=== PATIENT | female | born 1950 | race African-American/Black ===

== ENCOUNTER 2016-07-29 21:14 | Emergency (ER) | payer OTHER ==
[2016-07-29 21:24] VITALS: BP 140/87; PULSE 117; TEMP 97.8; BMI 30.2
--- NOTE | 2016-07-29 21:31 | PDOC ---
History of Present Illness - General History Source: Patient Exam Limitations: No Limitations - History of Present Illness Initial Comments: 07/29/16 21:41 The patient is a 66 year old female with significant past medical history of hypertension, MS, and multiple allergies who presents to the ED with allergic reaction few hours prior to arrival. Patient reports she ate eggs around 4pm and at that time she believed she developed an allergic reaction. Patient states she felt her throat closing up and decided to give herself an epipen with improvement. Subsequently, she felt tightness of the throat, which she describes as being dry. Patient denies chest pain, SOB, tongue swelling, mouth swelling, and hives. Patient has a history of angioedema secondary to taking monopril The patient denies fever, chills, and cough. The patient denies abdominal pain, nausea, vomiting, and diarrhea. Allergies: egg, fosinopril sodium, aspirin, sulfa Social History: No alcohol, tobacco, or drug use reported. Past Surgical History: None reported <Sugey Washburn - Last Filed: 07/29/16 21:41> - General History Source: Patient <William Nicole - Last Filed: 07/29/16 22:55> - General Chief Complaint: Allergic Reaction Stated Complaint: ALLERGIC RX Time Seen by Provider: 07/29/16 21:30 Past History <Sugey Washburn - Last Filed: 07/29/16 21:41> - Past Medical History HTN: Yes Psychiatric Problems: Yes Other medical history: MS - Immunization History Td Vaccination: (unknown) Immunization Up to Date: Yes (unknown) - Psycho/Social/Smoking Cessation Hx Anxiety: Yes Suicidal Ideation: No Smoking Status: No Smoking History: Current every day smoker Years of Tobacco Use: 0 Have you smoked in the past 12 months: Yes Number of Cigarettes Smoked Daily: 10 If you are a former smoker, when did you quit?: per the daughter the patient quit smoking one month ago. Cigars Per Day: 0 Information on smoking cessation initiated: No Hx Alcohol Use: No Drug/Substance Use Hx: No Substance Use Type: None Hx Substance Use Treatment: No <William Nicole - Last Filed: 07/29/16 22:55> - Past Medical History Allergies/Adverse Reactions: Allergies Allergy/AdvReac Type Severity Reaction Status Date / Time egg Allergy Severe Difficulty Verified 07/29/16 21:22 Breathing fosinopril sodium Allergy Severe ACUTE Verified 07/29/16 21:22 [From Monopril] ANGIOEDEMA. aspirin Allergy Mild ABDOMINAL Verified 07/29/16 21:22 PAIN Sulfa (Sulfonamide Allergy "MUCOUS Verified 07/29/16 21:22 Antibiotics) [facility]". Home Medications: Ambulatory Orders Amlodipine Besylate [Norvasc -] 5 mg PO DAILY 02/14/15 Interferon Alfacon-1 [Infergen] 9 mcg SQ WEEKLY 02/14/15 Multivitamin [Poly-Vitamin] 1 each PO DAILY 02/14/15 Nortriptyline HCl [Pamelor -] 25 mg PO DAILY 02/14/15 Diphenhydramine HCl [Benadryl Capsules -] 25 mg PO TID #30 capsule 07/29/16 Epinephrine (Epi-Pen 0.3MG) [Epipen 0.3MG -] 0.3 mg IM ASDIR #2 pens 07/29/16 Famotidine [Pepcid] 40 mg PO DAILY #30 tablet 07/29/16 Methylprednisolone [Medrol Dose Gustavo] 4 mg PO ASDIR #21 tablet 07/29/16 Review of Systems - Review of Systems Able to Perform ROS?: Yes Comments:: 07/29/16 21:41 CONSTITUTIONAL: Absent: fever, no chills, no fatigue EYES: Absent: visual changes ENT: +throat swelling/tightness Absent: ear pain, no sore throat CARDIOVASCULAR: Absent: chest pain, no palpitations RESPIRATORY: Absent: cough, no SOB GI: Absent: abdominal pain, no nausea, no vomiting, no constipation, no diarrhea GENITOURINARY: Absent: dysuria, no frequency, no hematuria MUSKULOSKELETAL: Absent: back pain, no arthralgia, no myalgia SKIN: Absent: rash NEURO: Absent: headache <Bharrat,Sugey - Last Filed: 07/29/16 21:41> *Physical Exam - Vital Signs Last Vital Signs Temp Pulse Resp BP Pulse Ox 97.8 F 117 H 16 140/87 98 07/29/16 21:22 07/29/16 21:22 07/29/16 21:22 07/29/16 21:22 07/29/16 21:22 - Physical Exam Comments: 07/29/16 21:42 GENERAL: Well-appearing, well-nourished. No apparent distress. HEENT: Normocephalic, atraumatic. PERRL, EOM intact. CARDIOVASCULAR: Normal S1, S2. Regular rate and rhythm. PULMONARY: No respiratory distress. Clear to auscultation bilaterally. No accessory muscle use. No tripoding. No hot potato voice. ABDOMEN: Soft, non-distended, non-tender. EXTREMITIES: Normal ROM in all four extremities. No gross deformities. SKIN: Warm, dry. No rash NEUROLOGICAL: No focal neurological deficits. <Sugey Washburn - Last Filed: 07/29/16 21:41> - Vital Signs Last Vital Signs Temp Pulse Resp BP Pulse Ox 97.8 F 117 H 16 140/87 98 07/29/16 21:22 07/29/16 21:22 07/29/16 21:22 07/29/16 21:22 07/29/16 21:22 <William Nicole - Last Filed: 07/29/16 22:55> ED Treatment Course - LABORATORY CBC & Chemistry Diagram: 07/29/16 21:50 07/29/16 21:50 <William Nicole - Last Filed: 07/29/16 22:55> Medical Decision Making - Medical Decision Making 07/29/16 22:53 Dr. Nicole: The scribe's documentation has been prepared under my direction and personally reviewed by me in its entirery. I confirm that the note above accurately reflects all work, treatment, procedures, and medical decision making performed by me. <William Nicole - Last Filed: 07/29/16 22:55> *DC/Admit/Observation/Transfer - Attestations Scribe Attestion: 07/29/16 21:42 Documentation prepared by Sugey Washburn, acting as associate medical director for William Nicole MD <Sugey Washburn - Last Filed: 07/29/16 21:41> - Discharge Dispostion Admit: No <William Nicole - Last Filed: 07/29/16 22:55> Diagnosis at time of Disposition: Allergic reaction Qualifiers: Encounter type: initial encounter Qualified Code(s): T78.40XA - Allergy, unspecified, initial encounter - Discharge Dispostion Disposition: HOME Condition at time of disposition: Improved - Patient Instructions Printed Discharge Instructions: DI for General Allergic Reactions
[2016-07-29] MEDS ORDERED: methylPREDNISolone NA SUCC 125 MG/2 ML VIAL IVPB ONE (21:32)
[2016-07-29] MEDS ORDERED: FAMOTIDINE 20 MG/50 ML IVPB 20 MG in PREMIX 50 IVPB ONE (21:32)
[2016-07-29] MEDS ORDERED: methylPREDNISolone NA SUCC 125 MG/2 ML VIAL ONE (21:33)
[2016-07-29] MEDS ORDERED: SODIUM CHLORIDE 1,000 ML IV STA (21:33)
[2016-07-29] MEDS ORDERED: FAMOTIDINE 20 MG/50 ML IVPB 50 ML IVPB ONE (21:33)
[2016-07-29 21:56] LABS: BASOPHIL 1.3 % (0-2.0); MCH 22.2 pg (25.7-33.7); MEAN CELL VOLUME 69.3 fl (80-96); MEAN PLT VOLUME 8.8 fl (7.5-11.1); NEUTROPHILS 51.8 % (42.8-82.8); RDW 14.7 % (11.6-15.6); WHITE BLOOD COUNT 7.4 K/mm3 (4.0-10.0)
[2016-07-29 22:32] LABS: HYPOCHROMIA 1+; MICROCYTOSIS 1+; PLATELET COUNT 283 K/MM3 (134-434); PLATELET ESTIMATE ADEQUATE (NORMAL)
[2016-07-29 22:45] LABS: ALBUMIN 3.9 g/dl (3.4-5.0); CALCIUM 9.6 mg/dL (8.5-10.1); CREATININE 1.1 mg/dL (0.55-1.02)
[2016-07-29 22:47] LABS: BILIRUBIN,TOTAL 0.3 mg/dL (0.2-1.0)
== END 2016-07-29 23:02 | disposition home or self-care (01) ==
LOC: JER 21:14
PROC: 3E033GC Introduction of Other Therapeutic Substance into Peripheral Vein, Percutaneous Approach (ICD-10-PCS; principal; 2016-07-29)
PROC: 3E033NZ Introduction of Analgesics, Hypnotics, Sedatives into Peripheral Vein, Percutaneous Approach (ICD-10-PCS; 2016-07-29)
PROC: 3E0337Z Introduction of Electrolytic and Water Balance Substance into Peripheral Vein, Percutaneous Approach (ICD-10-PCS; 2016-07-29)
DX: T78.40XA Allergy, unspecified, initial encounter (principal); X58.XXXA Exposure to other specified factors, initial encounter; I10 Essential (primary) hypertension; G35 Multiple sclerosis; F17.210 Nicotine dependence, cigarettes, uncomplicated
CPT/HCPCS: 36415; 80053; 85025; 96365; 96375; 99282-25

== ENCOUNTER 2016-08-06 11:49 | Emergency (ER) | payer OTHER ==
--- NOTE | 2016-08-06 12:06 | PDOC ---
History of Present Illness - General Stated Complaint: PALPITATION Time Seen by Provider: 08/06/16 12:05 Past History - Past Medical History Allergies/Adverse Reactions: Allergies Allergy/AdvReac Type Severity Reaction Status Date / Time egg Allergy Severe Difficulty Verified 07/29/16 21:22 Breathing fosinopril sodium Allergy Severe ACUTE Verified 07/29/16 21:22 [From Monopril] ANGIOEDEMA. aspirin Allergy Mild ABDOMINAL Verified 07/29/16 21:22 PAIN Sulfa (Sulfonamide Allergy "MUCOUS Verified 07/29/16 21:22 Antibiotics) [facility]". Home Medications: Ambulatory Orders Amlodipine Besylate [Norvasc -] 5 mg PO DAILY 02/14/15 Interferon Alfacon-1 [Infergen] 9 mcg SQ WEEKLY 02/14/15 Multivitamin [Poly-Vitamin] 1 each PO DAILY 02/14/15 Nortriptyline HCl [Pamelor -] 25 mg PO DAILY 02/14/15 Diphenhydramine HCl [Benadryl Capsules -] 25 mg PO TID #30 capsule 07/29/16 Epinephrine (Epi-Pen 0.3MG) [Epipen 0.3MG -] 0.3 mg IM ASDIR #2 pens 07/29/16 Famotidine [Pepcid] 40 mg PO DAILY #30 tablet 07/29/16 Methylprednisolone [Medrol Dose Gustavo] 4 mg PO ASDIR #21 tablet 07/29/16 HTN: Yes Psychiatric Problems: Yes - Immunization History Td Vaccination: (unknown) Immunization Up to Date: Yes (unknown) - Psycho/Social/Smoking Cessation Hx Anxiety: Yes Suicidal Ideation: No Smoking Status: No Smoking History: Current every day smoker Years of Tobacco Use: 0 Have you smoked in the past 12 months: Yes Number of Cigarettes Smoked Daily: 10 If you are a former smoker, when did you quit?: per the daughter the patient quit smoking one month ago. Cigars Per Day: 0 Hx Alcohol Use: No Drug/Substance Use Hx: No Substance Use Type: None Hx Substance Use Treatment: No *Physical Exam - Vital Signs Last Vital Signs Temp Pulse Resp BP Pulse Ox 98.7 F 80 16 148/88 98 08/06/16 12:24 08/06/16 14:55 08/06/16 14:55 08/06/16 14:55 08/06/16 14:55 ED Treatment Course - LABORATORY CBC & Chemistry Diagram: 08/06/16 12:30 08/06/16 12:30 - ADDITIONAL ORDERS Additional order review: 08/06/16 12:30 RBC 6.30 H MCV 69.3 L MCHC 32.4 RDW 14.9 MPV 8.1 Neutrophils % 65.8 D Lymphocytes % 25.5 D Monocytes % 7.5 Eosinophils % 0.6 Basophils % 0.6 *DC/Admit/Observation/Transfer Diagnosis at time of Disposition: Palpitations - Discharge Dispostion Disposition: AGAINST MEDICAL ADVICE Condition at time of disposition: Good Admit: No - Referrals Referrals: Rebecca Sullivan MD [Primary Care Provider] -
--- NOTE | 2016-08-06 12:06 | PDOC ---
History of Present Illness - General Stated Complaint: PALPITATION Time Seen by Provider: 08/06/16 12:05 History Source: Patient Exam Limitations: No Limitations - History of Present Illness Initial Comments: 08/06/16 12:29 Patient is a 66 year old female with significant PMH of Hypertension & Multiple Sclerosis who presents to ED with palpitation since last night. States she developed palpitations and a feeling of "heavy pulses" after a moderately strenuous day. Palpitations were followed by a diffuse tension headache and bounding pulses in her carotids, namely her left carotid. She woke up this morning with continued pain at her left neck which was now accompanied by left arm numbness. She reports constipation. Denies fever, chills, tremors, sweating , heat/cold intolerance, vision changes. States she was told she has a cystocoele and is to followup with urologist later this week. She finished a Medrol dose pack 2 days ago for seasonal allergies. Past History - Travel Traveled outside of the country in the last 30 days: No Close contact w/someone who was outside of country & ill: No - Past Medical History Allergies/Adverse Reactions: Allergies Allergy/AdvReac Type Severity Reaction Status Date / Time egg Allergy Severe Difficulty Verified 07/29/16 21:22 Breathing fosinopril sodium Allergy Severe ACUTE Verified 07/29/16 21:22 [From Monopril] ANGIOEDEMA. aspirin Allergy Mild ABDOMINAL Verified 07/29/16 21:22 PAIN Sulfa (Sulfonamide Allergy "MUCOUS Verified 07/29/16 21:22 Antibiotics) [facility]". Home Medications: Ambulatory Orders Amlodipine Besylate [Norvasc -] 5 mg PO DAILY 02/14/15 Interferon Alfacon-1 [Infergen] 9 mcg SQ WEEKLY 02/14/15 Multivitamin [Poly-Vitamin] 1 each PO DAILY 02/14/15 Nortriptyline HCl [Pamelor -] 25 mg PO DAILY 02/14/15 Diphenhydramine HCl [Benadryl Capsules -] 25 mg PO TID #30 capsule 07/29/16 Epinephrine (Epi-Pen 0.3MG) [Epipen 0.3MG -] 0.3 mg IM ASDIR #2 pens 07/29/16 Famotidine [Pepcid] 40 mg PO DAILY #30 tablet 07/29/16 Methylprednisolone [Medrol Dose Gustavo] 4 mg PO ASDIR #21 tablet 07/29/16 HTN: Yes Other medical history: Multiple Sclerosis - Surgical History Other Surgical History: 08/06/16 12:33 Tonsilectomy, Lumpectomy - Family Disease History Family Disease History: Heart Disease: Brother ([place]) - Immunization History Td Vaccination: (unknown) Immunization Up to Date: Yes (unknown) - Psycho/Social/Smoking Cessation Hx Anxiety: Yes Suicidal Ideation: No Smoking Status: No Smoking History: Current every day smoker Years of Tobacco Use: 40 Have you smoked in the past 12 months: Yes Number of Cigarettes Smoked Daily: 10 If you are a former smoker, when did you quit?: per the daughter the patient quit smoking one month ago. Cigars Per Day: 0 Hx Alcohol Use: No Drug/Substance Use Hx: No Substance Use Type: None Hx Substance Use Treatment: No Review of Systems - Review of Systems Able to Perform ROS?: Yes Is the patient limited Greenlandic proficient: No Cardiac (ROS): Yes: Lightheadedness, Palpitations, Other (neck tightness) ABD/GI: Yes: Constipated Neurological: Yes: Headache All Other Systems: Reviewed and Negative *Physical Exam - Physical Exam General Appearance: Yes: Nourished, Appropriately Dressed HEENT: positive: EOMI, VADIM, Normal ENT Inspection Neck: positive: Trachea midline, Supple (Mild thyromegaly (L>R)) Respiratory/Chest: positive: Lungs Clear, Normal Breath Sounds Cardiovascular: positive: Regular Rhythm, S1, S2, Tachycardia, Other ((-) CAROTID BRUIT) Gastrointestinal/Abdominal: positive: Normal Bowel Sounds, Flat, Soft Musculoskeletal: positive: Normal Inspection Extremity: positive: Normal Inspection, Normal Range of Motion Integumentary: positive: Normal Color, Dry, Warm Neurologic: positive: bull rider II-XII NML intact, Fully Oriented, Alert, Normal Mood/ Affect, Motor Strength 5/5 Heart Score/ECG Review - ECG Impressions Normal ECG: Yes Comment:: 08/06/16 12:36 As per ED read, EKG shows normal Sinus rhythm ED Treatment Course - LABORATORY CBC & Chemistry Diagram: 08/06/16 12:30 08/06/16 12:30 Medical Decision Making - Medical Decision Making 08/06/16 12:36 Carotid Dopplers & Head CT ordered. Also ordered workup including CBC, CMP, BNP , TSH, Cardiac profile to rule out ACS. CXR also requested. 08/06/16 14:[address] & Carotid doppler (-) for any signs of anuerysm, dissection, stenosis or acute pathology. Troponin (-) x1. Will repeat cardiac profile at 16:30, if (- ) then will discharge with instructions to f/u with PCP. 08/06/16 17:26 Patient had another episode of left upper chest & neck pain while in ED. Will need to keep overnight for cardiac monitoring and further troponin levels. Left message with Dr Witt who is admitting for (PCP). 08/06/16 17:[address] Witt. Agrees to place patient in telemetry for observation overnight. Patient stable at present. *DC/Admit/Observation/Transfer Diagnosis at time of Disposition: Palpitations - Discharge Dispostion Admit: Yes
[2016-08-06 12:28] VITALS: TEMP 98.7; BMI 30.2
[2016-08-06 12:50] LABS: BASOPHIL 0.6 % (0-2.0); EOSINOPHIL 0.6 % (0-4.5); MCH 22.4 pg (25.7-33.7); MCHC 32.4 g/dl (32.0-36.0); MEAN CELL VOLUME 69.3 fl (80-96); MEAN PLT VOLUME 8.1 fl (7.5-11.1); NEUTROPHILS 65.8 % (42.8-82.8); PLATELET COUNT 265 K/MM3 (134-434); RDW 14.9 % (11.6-15.6); WHITE BLOOD COUNT 11.3 K/mm3 (4.0-10.0)
[2016-08-06 13:13] LABS: ALBUMIN 3.5 g/dl (3.4-5.0); BILIRUBIN,TOTAL 0.3 mg/dL (0.2-1.0); CALCIUM 8.3 mg/dL (8.5-10.1); TOT PROT 6.8 g/dl (6.4-8.2)
[2016-08-06 13:21] LABS: THYROID STIMULATING HORMONE 2.66 uIU/ml (0.358-3.74); TROPONIN I 0.03 ng/ml (0.00-0.05)
[2016-08-06 13:48] LABS: HYPOCHROMIA 1+; MICROCYTOSIS 1+; PLATELET ESTIMATE ADEQUATE (NORMAL)
[2016-08-06 13:49] LABS: TARGET CELLS FEW
--- NOTE | 2016-08-06 14:13 | EKG ---
Test Reason : Blood Pressure : / mmHG Vent. Rate : 084 BPM Atrial Rate : 084 BPM P-R Int : 158 ms QRS Dur : 084 ms QT Int : 384 ms P-R-T Axes : 057 047 057 degrees QTc Int : 453 ms NORMAL SINUS RHYTHM POSSIBLE LEFT ATRIAL ENLARGEMENT BORDERLINE ECG WHEN COMPARED WITH ECG OF 31-MAY-2015 03:10, CRITERIA FOR SEPTAL INFARCT ARE NO LONGER PRESENT Confirmed by RAMANDEEP UBCKNER, THIEN ([id number]) on 08/06/2016 2:12:51 PM Referred By: Confirmed By:THIEN SABILLON MD
[2016-08-06 14:56] VITALS: BP 148/88; PULSE 80
[2016-08-06 18:19] LABS: TROPONIN I 0.03 ng/ml (0.00-0.05)
--- NOTE | 2016-08-06 23:10 | HP ---
Admitting History and Physical - Primary Care Physician PCP: Chun Witt - Admission Chief Complaint: Palpitations History of Present Illness: Pt. went to bed last night but couldn't fall a sleep secondary to palpitations; pt. had left arm numbness associated with palpitaions. This AM pt. had a new episode of palpitations associated with lightheadedness, left arm numbness; pt came to ER; pt was placed under observation status on Telemetry for monitoring. History Source: Patient - Past Medical History SKEIN WASHER: Yes: Multiple Sclerosis Cardiovascular: Yes: HTN Endocrine: Yes: Other (Elevated Fasting Glucose) - Smoking History Smoking history: Current every day smoker Have you smoked in the past 12 months: Yes Aproximately how many cigarettes per day: 10 If you are a former smoker, when did you quit?: per the daughter the patient quit smoking one month ago. - Alcohol/Substance Use Hx Alcohol Use: No Home Medications - Allergies Allergies/Adverse Reactions: Allergies Allergy/AdvReac Type Severity Reaction Status Date / Time egg Allergy Severe Difficulty Verified 07/29/16 21:22 Breathing fosinopril sodium Allergy Severe ACUTE Verified 07/29/16 21:22 [From Monopril] ANGIOEDEMA. aspirin Allergy Mild ABDOMINAL Verified 07/29/16 21:22 PAIN Sulfa (Sulfonamide Allergy "MUCOUS Verified 07/29/16 21:22 Antibiotics) [facility]". - Home Medications Home Medications: Ambulatory Orders Amlodipine Besylate [Norvasc -] 5 mg PO DAILY 02/14/15 Interferon Alfacon-1 [Infergen] 9 mcg SQ WEEKLY 02/14/15 Multivitamin [Poly-Vitamin] 1 each PO DAILY 02/14/15 Nortriptyline HCl [Pamelor -] 25 mg PO DAILY 02/14/15 Diphenhydramine HCl [Benadryl Capsules -] 25 mg PO TID #30 capsule 07/29/16 Epinephrine (Epi-Pen 0.3MG) [Epipen 0.3MG -] 0.3 mg IM ASDIR #2 pens 07/29/16 Famotidine [Pepcid] 40 mg PO DAILY #30 tablet 07/29/16 Methylprednisolone [Medrol Dose Gustavo] 4 mg PO ASDIR #21 tablet 07/29/16 Review of Systems - Review of Systems Constitutional: denies: Chills, Fever Eyes: denies: Blurred Vision, Double Vision HENT: denies: Ear Discharge, Ear Pain, Nasal Congestion, Throat Pain Neck: denies: Pain on Movement, Stiffness Cardiovascular: denies: Chest Pain (now), Edema, Palpitations (now), Shortness of Breath Respiratory: denies: Cough, Hemoptysis, SOB on Exertion, Wheezing Gastrointestinal: denies: Abdominal Pain, Nausea, Vomiting Genitourinary: denies: Burning, Dysuria, Frequency Neurological: denies: Change in LOC, Change in Speech, Confusion, Numbness (now) Endocrine: denies: Excessive Sweating, Intolerance to Cold Hematology/Lymphatic: denies: Easily Bruised, Excessive Bleeding Physical Examination Vital Signs: Vital Signs Temperature 98.7 F 08/06/16 12:24 Pulse Rate 80 08/06/16 14:55 Respiratory Rate 16 08/06/16 14:55 Blood Pressure 148/88 08/06/16 14:55 O2 Sat by Pulse Oximetry (%) 98 08/06/16 14:55 Constitutional: Yes: No Distress, Calm Eyes: Yes: Conjunctiva Clear, EOM Intact, PERRL HENT: Yes: Normocephalic. No: Epistaxis, Nasal Congestion, Pharyngeal Erythema Neck: Yes: Trachea Midline, Thyromegaly. No: Lymphadenopathy, Tenderness Cardiovascular: Yes: Regular Rate and Rhythm, S1, S2 Respiratory: Yes: Regular, CTA Bilaterally. No: Rales Gastrointestinal: Yes: Normal Bowel Sounds, Soft. No: Palpable Mass, Tenderness ...Rectal Exam: Yes: Deferred Renal/: No: CVA Tenderness - Left, CVA Tenderness - Right Breast(s): Yes: Other (Deferred) Musculoskeletal: No: Joint Stiffness, Joint Swelling Extremities: No: Cold, Cool Edema: No Neurological: Yes: Cran Nerves II-XII Intact. No: Alert, Oriented, Confusion Psychiatric: Yes: Alert, Oriented. No: Agitated Labs: reviewed Imaging - Results Chest X-ray: Report Reviewed Cat Scan: Report Reviewed Ultrasound: Report Reviewed Problem List - Problems (1) Palpitations Assessment/Plan: Serial CE Monitor on telemetry Cardio Consult Code(s): R00.2 - PALPITATIONS (2) Goiter diffuse Assessment/Plan: normal TSH Code(s): E04.9 - NONTOXIC GOITER, UNSPECIFIED (3) Multiple sclerosis Assessment/Plan: At baseline Code(s): G35 - MULTIPLE SCLEROSIS Assessment/Plan AM labs
[2016-08-06] MEDS ORDERED: NORTRIPTYLINE HCL 25 MG CAPSULE PO SCH (23:45)
[2016-08-07] MEDS ORDERED: amLODIPine BESYLATE 5 MG TABLET (FP) PO SCH (10:00)
== END 2016-08-07 02:28 | disposition left against medical advice (07) ==
LOC: JER 11:49 → JERBED 22:26 → UNDOADMOB 22:26 → JER 08-07 02:28
DX: R00.2 Palpitations (principal); I10 Essential (primary) hypertension; G35 Multiple sclerosis; F17.210 Nicotine dependence, cigarettes, uncomplicated
CPT/HCPCS: 36415; 70450-TC; 71010-TC; 80053; 82550; 83880; 84443; 84484; 85025; 93005; 93010; 93880-TC; 99285-25

== ENCOUNTER 2017-02-18 20:23 | Emergency (ER) | payer OTHER ==
[2017-02-18 20:36] VITALS: BP 142/89; PULSE 82; TEMP 97.7; BMI 30.2
[2017-02-18] MEDS ORDERED: predniSONE 20 MG TABLET (UD) PO ONE (21:03)
[2017-02-18] MEDS ORDERED: predniSONE 20 MG TABLET (UD) ONE (21:05)
--- NOTE | 2017-02-18 21:09 | PDOC ---
History of Present Illness - General Chief Complaint: Allergic Reaction Stated Complaint: ALLERGIC REACTION Time Seen by Provider: 02/18/17 20:39 History Source: Patient Exam Limitations: No Limitations - History of Present Illness Initial Comments: 02/18/17 21:04 66-year-old female with multiple food allergies presents to the ED with complaints of generalized itching and feeling that her throat was closing with hoarse voice after having Ramen soup that may or may have not contained eggs which she is allergic to. Patient currently has no complaints of dizziness, difficulty breathing, or feeling that her throat is closing. Patient states took Benadryl and gave herself an EpiPen that she realizes after being administered. Timing/Duration: reports: just prior to arrival Severity: reports: moderate Possible Cause: Yes: occasional episodes Associated Symptoms: reports: sore throat, other. denies: shortness of breath, wheezing Past History - Travel Traveled outside of the country in the last 30 days: No Close contact w/someone who was outside of country & ill: No - Past Medical History Allergies/Adverse Reactions: Allergies Allergy/AdvReac Type Severity Reaction Status Date / Time egg Allergy Severe Difficulty Verified 02/18/17 20:32 Breathing fosinopril sodium Allergy Severe ACUTE Verified 02/18/17 20:32 [From Monopril] ANGIOEDEMA. aspirin Allergy Mild ABDOMINAL Verified 02/18/17 20:32 PAIN Sulfa (Sulfonamide Allergy "MUCOUS Verified 02/18/17 20:32 Antibiotics) [facility]". Home Medications: Ambulatory Orders Amlodipine Besylate [Norvasc -] 5 mg PO DAILY 02/14/15 Interferon Alfacon-1 [Infergen] 9 mcg SQ WEEKLY 02/14/15 Multivitamin [Poly-Vitamin] 1 each PO DAILY 02/14/15 Nortriptyline HCl [Pamelor -] 25 mg PO DAILY 02/14/15 Diphenhydramine HCl [Benadryl Capsules -] 25 mg PO TID #30 capsule 07/29/16 Epinephrine (Epi-Pen 0.3MG) [Epipen 0.3MG -] 0.3 mg IM ASDIR #2 pens 07/29/16 Famotidine [Pepcid] 40 mg PO DAILY #30 tablet 07/29/16 Methylprednisolone [Medrol Dose Gustavo] 4 mg PO ASDIR #21 tablet 07/29/16 GI Disorders: Yes (CYSTOCELE) HTN: Yes Psychiatric Problems: Yes Other medical history: Multiple sclerosis - Family Disease History Family Disease History: Heart Disease: Brother ([place]) - Immunization History Td Vaccination: (unknown) Immunization Up to Date: Yes (unknown) - Psycho/Social/Smoking Cessation Hx Anxiety: Yes Suicidal Ideation: No Smoking Status: No Smoking History: Current every day smoker Years of Tobacco Use: 0 Have you smoked in the past 12 months: Yes Number of Cigarettes Smoked Daily: 10 If you are a former smoker, when did you quit?: per the daughter the patient quit smoking one month ago. Cigars Per Day: 0 Information on smoking cessation initiated: No Hx Alcohol Use: No Drug/Substance Use Hx: No Substance Use Type: None Hx Substance Use Treatment: No Patient Lives Alone: No Review of Systems - Review of Systems Able to Perform ROS?: No Is the patient limited Turkish proficient: No Constitutional: No: Symptoms Reported HEENTM: Yes: Throat Swelling Respiratory: No: Symptoms reported Cardiac (ROS): No: Symptoms Reported ABD/GI: No: Symptoms Reported Musculoskeletal: No: Symptoms Reported Integumentary: Yes: Pruritus, Rash Endocrine: No: Symptoms Reported *Physical Exam - Vital Signs Last Vital Signs Temp Pulse Resp BP Pulse Ox 97.7 F 82 20 142/89 98 02/18/17 20:33 02/18/17 20:33 02/18/17 20:33 02/18/17 20:33 02/18/17 20:33 - Physical Exam General Appearance: Yes: Nourished, Appropriately Dressed. No: Apparent Distress HEENT: positive: EOMI, VADIM, Normal Voice, TMs Normal, Pharynx Normal (uvula midline. No erythema. No edema) Respiratory/Chest: positive: Lungs Clear, Normal Breath Sounds. negative: Respiratory Distress, Accessory Muscle Use, Stridor, Wheezing Cardiovascular: positive: Regular Rhythm, Regular Rate. negative: Murmur Integumentary: positive: Hives (mild to upper anterior neck.) Medical Decision Making - Medical Decision Making 02/18/17 21:07 Patient here for evaluation of possible allergic reaction to ingestion of aches. Patient gave herself 50 modems of Benadryl prior to arrival and an EpiPen due to feeling that her throat was closing. Patient here on exam had no acute findings and will be given prednisone 60 with three-day supply of 40 mg to avoid rebound reaction. Patient also will be given a refill for her EpiPen and states has Benadryl at home. *DC/Admit/Observation/Transfer Diagnosis at time of Disposition: Allergic reaction Qualifiers: Encounter type: initial encounter Qualified Code(s): T78.40XA - Allergy, unspecified, initial encounter - Discharge Dispostion Disposition: HOME Condition at time of disposition: Improved - Referrals Referrals: Rebecca Sullivan MD [Primary Care Provider] - - Patient Instructions Printed Discharge Instructions: DI for General Allergic Reactions Additional Instructions: Please carry EpiPen with you at all times. Please take Benadryl as needed for itching and rash. Please take prednisone starting tomorrow for the next 3 days. If symptoms return despite above recommendations please return to the ED immediately. - Post Discharge Activity
== END 2017-02-18 21:15 | disposition home or self-care (01) ==
LOC: JERFT 20:23
DX: T78.40XA Allergy, unspecified, initial encounter (principal); I10 Essential (primary) hypertension; G35 Multiple sclerosis; F99 Mental disorder, not otherwise specified; F17.210 Nicotine dependence, cigarettes, uncomplicated
CPT/HCPCS: 99281-25

== ENCOUNTER 2020-07-07 23:26 | Emergency (ER) | payer OTHER ==
[2020-07-07 23:46] VITALS: BP 177/96; PULSE 83; TEMP 98.6; BMI 30.2
[2020-07-08] MEDS ORDERED: FAMOTIDINE 20 MG TABLET PO ONE (00:03)
[2020-07-08] MEDS ORDERED: predniSONE 20 MG TABLET (UD) PO ONE (00:03)
[2020-07-08] MEDS ORDERED: FAMOTIDINE 20 MG TABLET ONE (00:09)
[2020-07-08] MEDS ORDERED: predniSONE 20 MG TABLET (UD) ONE (00:09)
== END 2020-07-08 01:01 | disposition home or self-care (01) ==
LOC: FER 23:26
DX: T78.40XA Allergy, unspecified, initial encounter (principal)
CPT/HCPCS: 99284-25

== ENCOUNTER 2020-09-08 07:02 | Inpatient (IN) | payer OTHER ==
[2020-09-08 07:26] VITALS: BMI 29.2
[2020-09-08 08:31] LABS: BASO % 0.9 % (0-2.0); EOS % 1.1 % (0-4.5); HEMATOCRIT 43.2 % (32.4-45.2); LYMPH % 27.8 % (8-40); MCH 22.9 pg (25.7-33.7); MCHC 32.5 g/dl (32.0-36.0); MEAN CELL VOLUME 70.6 fl (80-96); MEAN PLT VOLUME 9.7 fl (7.5-11.1); MONO % 7.4 % (3.8-10.2); NEUT % 62.8 % (42.8-82.8); PLATELET COUNT 216 K/MM3 (134-434); RBC 6.11 M/mm3 (3.60-5.2); RDW 14.4 % (11.6-15.6); WHITE BLOOD COUNT 7.6 K/mm3 (4.0-10.0)
[2020-09-08] MEDS ORDERED: SODIUM CHLORIDE 1,000 ML IV STA (08:48)
[2020-09-08 09:19] LABS: ALBUMIN 3.5 g/dl (3.4-5.0); ALK PHOS 138 U/L (45-117); ANION GAP 7 MMOL/L (8-16); BILIRUBIN,TOTAL 0.4 mg/dL (0.2-1); BLOOD UREA NITROGEN 10.4 mg/dL (7-18); CALCIUM 8.8 mg/dL (8.5-10.1); CHLORIDE 110 mmol/L (98-107); CO2 21 mmol/L (21-32); CREATININE 0.8 mg/dL (0.55-1.3); GLUCOSE,RANDOM 102 mg/dL (74-106); MAGNESIUM 1.9 mg/dL (1.8-2.4); SGOT/AST 53 U/L (15-37); SGPT/ALT 41 U/L (13-61); SODIUM 138 mmol/L (136-145); TOT PROT 7.5 g/dl (6.4-8.2)
[2020-09-08 09:39] LABS: POTASSIUM 6.1 mmol/L (3.5-5.1)
[2020-09-08 09:39] LABS: EPI CELLS 4 /uL (0-25.1); HYALINE CASTS 0 /uL (0-3.1); PH,URINE 6.5 (5.0-8.0); URINE APPEARANCE CLEAR; URINE BACTERIA 86 /uL (0-1359); URINE BILIRUBIN NEGATIVE (NEGATIVE); URINE COLOR YELLOW; URINE GLUCOSE (UA) NEGATIVE (NEGATIVE); URINE KETONE NEGATIVE (NEGATIVE); URINE LEUK ESTERASE TRACE (NEGATIVE); URINE NITRITE NEGATIVE (NEGATIVE); URINE PROTEIN NEGATIVE (NEGATIVE); URINE RBC 6 /uL (0-23.9); URINE UROBILINOGEN 0.2 mg/dL (0.2-1.0); URINE WBC 9 /uL (0-25.8)
[2020-09-08 10:09] LABS: POTASSIUM 3.8 mmol/L (3.5-5.1)
[2020-09-08 10:11] LABS: CALCIUM 8.3 mg/dL (8.5-10.1)
[2020-09-08 10:12] LABS: ALBUMIN 3.3 g/dl (3.4-5.0); BLOOD UREA NITROGEN 9.7 mg/dL (7-18)
[2020-09-08 10:15] LABS: CREATININE 0.8 mg/dL (0.55-1.3)
[2020-09-08 10:16] LABS: BILIRUBIN,TOTAL 0.2 mg/dL (0.2-1); TOT PROT 6.4 g/dl (6.4-8.2)
[2020-09-08] MEDS: NEBIVOLOL 5 MG TABLET (FP) PO SCH (16:30)
[2020-09-08] MEDS ORDERED: NORTRIPTYLINE HCL 25 MG CAPSULE PO SCH (22:00)
[2020-09-09 04:00] VITALS: TEMP 98.4
[2020-09-09 06:18] LABS: CHOLESTEROL 182 mg/dL (50-200); TRIGLYCERIDES 84 mg/dL (0-150)
[2020-09-09 06:19] LABS: LDL CHOLESTEROL (ONLY SJRH) 115 mg/dL (5-100)
[2020-09-09 06:21] LABS: HDL CHOLESTEROL 54 mg/dL (40-60)
[2020-09-09] MEDS ORDERED: FAMOTIDINE 20 MG TABLET PO SCH (10:00)
[2020-09-09] MEDS ORDERED: amLODIPine BESYLATE 5 MG TABLET (FP) PO SCH (10:00)
[2020-09-09 11:06] VITALS: BP 151/67; PULSE 56
[2020-09-09] MEDS: NEBIVOLOL 5 MG TABLET (FP) PO SCH (11:06)
[2020-09-09] MEDS ORDERED: amLODIPine BESYLATE 5 MG TABLET (FP) ONE (11:08)
[2020-09-09] MEDS ORDERED: FAMOTIDINE 20 MG TABLET ONE (11:09)
== END 2020-09-09 14:20 | disposition home or self-care (01) | DRG 310 ==
LOC: JER 07:02 → JERBED 09:42
PROVIDERS: ADMIT Internal Medicine; ATTEND Internal Medicine
DX: R00.2 Palpitations (principal); I10 Essential (primary) hypertension; N81.10 Cystocele, unspecified; G35 Multiple sclerosis; E07.9 Disorder of thyroid, unspecified; R07.89 Other chest pain; F17.210 Nicotine dependence, cigarettes, uncomplicated
CPT/HCPCS: 36415; 71045-TC-FY; 80053; 80061; 81003; 82550; 82553; 83721; 83735; 84436; 84439; 84443; 84484; 85025; 87086; 93005; 93010; 93306-TC; 93970-TC; 99285-25; C9803; U0003